=== PATIENT | female | born 1950 | race Caucasian/White ===

== ENCOUNTER 2019-04-04 13:30 | Outpatient (RCR) | payer BC, SELFPAY ==
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
--- NOTE | 2019-03-15 15:29 | HP.PTREVAL_ITS ---
LIZ HERNANDEZ, It has been my pleasure to treat BEAR HARRY over the last 9 visits for Right TKR. Please see the progress note below for an update on the physical therapy plan of care! Subjective: Patient reports that the knee is sore- the weather really bothers it- only taking Aleve or Tylenol. Went to MD who is very happy with her move ment. Wants her to do another 4 weeks of PT and wants to get back in the pool. Objective/Function: Posture: FH, RS- can correct with verbal cues. Gait: slightly antalgic- no AD and decreased stance on the right. Edema: moderate in right knee. Stairs: asc/desc recip with 2 HR. HR/TR: able with UE a. SLS: WS fully to the right but does not remove hands from wall. Palpation: not tender to touch. Observation: well healed incision ROM: 0-125 degrees. Strength: Ankle: 5/5, Knee: 4+/5, Hip: 4+/5 throughout Core: fair. Flex: HS-mod, Gastroc: mod Plan Plan: Continue aquatic PT 2x a week for 4 weeks Goals Goal 1:: Patient will be I with HEP and progression Goal Time Frame: 4-6 Weeks Goal Progress: Progressing Goal 2:: Patient will ambulate >300 feet with a normalized gait pattern and LRD Goal Time Frame: 4-6 Weeks Goal Progress: Progressing Goal 3:: Patient will asc/desc 8 stairs recip with 1 HR Goal Time Frame: 4-6 Weeks Goal Progress: Progressing Goal 4:: Patient will demo 0-115 degrees of ROM Goal Time Frame: 4-6 Weeks Goal Progress: Goal Met Anticipated Interventions Patient/Client Instruction: Educate patient on: Benefits of Fitness Program Therapeutic Exercise to Include: Strength training, Endurance training, Balance training, Agility training, Body mechanics, Postural training, Flexibilty training, Gait and locomotor training, Passive ROM, Active ROM, Dynamic Lumbar Stabilization For the Purpose of:: To improve muscle performance and motor function TENS: Yes Cryotherapy (ice pack, ice massage): Yes Thermo therapy (hot pack): Yes Ultrasound (thermal/non thermal): No Please do not hesitate to contact me at [phone] by phone or if you have questions or concerns regarding this new plan of care! Sincerely, Jesenia Flores, CABRERAT
--- NOTE | 2019-04-04 13:50 | HP.PTDCSUM ---
HP - PT D/C Summary It has been my pleasure to treat BEAR HARRY under orders from LIZ HERNANDEZ, for the diagnosis of Right TKR for a total of 14 visit(s). Discharge Date: Please see the following information for a summary of their discharge status. - Subjective Subjective: Patient reports that she still needs the swelling to go down- she is sleeping better and the pain is better. Worst: 4/10 rainy days do not help. Best: 0/10 most of the time she is painfree. Goes back to work tomorrow. Feels that she is 70%- wants the swelling to go down and walk futher and better. Still feels like she has a slight limp - Pain right knee Pain Intensity (Out of 10): 2 - Overall Improvement % Improvement: 70 - Objective Objective/Function: Posture: FH, RS- can correct with verbal cues. Gait: slightly antalgic- no AD and decreased stance on the right. Edema: moderate in right knee. Stairs: asc/desc recip with 1 HR. HR/TR: able with UE a. SLS: WS fully to the right but leaves one finger on the wall. Palpation: not tender to touch. Observation: well healed incision ROM: 0-125 degrees. Strength: Ankle: 5/5, Knee: 5/5, Hip: 5/5 throughout Core: fair plus. Flex: HS-mod, Gastroc: mod - Goals Goal 1:: Patient will be I with HEP and progression Goal Progress: Goal Met Goal 2:: Patient will ambulate >300 feet with a normalized gait pattern and LRD Goal Progress: Progressing Goal 3:: Patient will asc/desc 8 stairs recip with 1 HR Goal Progress: Goal Met Goal 4:: Patient will demo 0-115 degrees of ROM Goal Progress: Goal Met - Plan Plan: Discharge to I home exercise program - D/C Information If there are questions or concerns regarding this patient's physical therapy, please feel free to call me at [phone]. Thank you for the referral of this patient. Sincerely, CABRERA CabreraT
== END 2019-04-04 19:00 | disposition home or self-care (01) ==
LOC: PT 13:30
DX: Z96.651 Presence of right artificial knee joint (principal)
CPT/HCPCS: 97110; 97113; 97161; 97164

== ENCOUNTER 2019-07-19 13:30 | Outpatient (RCR) | payer BC, SELFPAY ==
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
--- NOTE | 2019-08-31 08:09 | HP.PT.NRP ---
HP - Discharge Summary (1) - Patient Information BEAR HARRY was seen in my office for initial evaluation on 07/16/19. The following Plan of Care was established for this patient: Initial Frequency: 2x /Week Initial Duration: 4 Weeks - Anticipated Interventions Patient/Client Instruction: Educate patient on: Condition For the Purpose of:: To decrease pain Therapeutic Exercise to Include: Strength training, Balance training, Body mechanics, Flexibilty training, Gait and locomotor training, In an aquatic setting, Passive ROM, Active ROM, Dynamic Lumbar Stabilization For the Purpose of:: To improve performance and independence with ADL's Functional Training to Include: Gait training For the Purpose of:: To improve performance and independence with ADL's Cryotherapy (ice pack, ice massage): Yes Thermo therapy (hot pack): Yes For the Purpose of:: To decrease pain This patient was last seen in our office . Pertinent comments regarding their Physical therapy will appear below: Patient has returned to work and I with HEP- d/c at this time. At this point I will be discontinuing this patient from physical therapy. I would be happy to see this patient again in the future if found appropriate by the physician. Thank you! CABRERA CabreraT
== END 2019-07-19 19:00 | disposition home or self-care (01) ==
LOC: PT 13:30
DX: S82.392D Other fracture of lower end of left tibia, subsequent encounter for closed fracture with routine healing (principal); S82.832D Other fracture of upper and lower end of left fibula, subsequent encounter for closed fracture with routine healing; S92.355D Nondisplaced fracture of fifth metatarsal bone, left foot, subsequent encounter for fracture with routine healing
CPT/HCPCS: 97113; 97161

== ENCOUNTER → 2020-10-02 07:14 | Outpatient (CLI) | payer MEDICARE, OTHER, SELFPAY ==
[2020-10-02 11:13] LABS: ALB/GLOB Ratio 0.9 RATIO (0.9-2.4); AST(SGOT) 18 U/L (15-37); Alanine Aminotransfer ALT/SGPT 35 U/L (13-56); Albumin, Serum 3.4 g/dL (3.2-5.0); Alkaline Phosphatase 114 U/L (45-117); Anion Gap 5 (5-15); BUN 11 mg/dL (7-18); BUN/Creat Ratio 14.4 RATIO (10-20); Calcium,Total 8.7 mg/dL (8.5-10.1); Chloride 108 mmol/L (98-107); Cholesterol 163 mg/dL (200); Creatinine, Serum 0.76 mg/dL (0.55-1.02); EST Glomerular Filtration Rate 80 mL/min (>60); Est Glom Filt Rate - Afr Amer 96 mL/min (>60); Globulin 3.7 g/dL (2.2-4.2); Glucose 89 mg/dL (74-106); High Density Lipoprotein 40 mg/dL; Potassium 3.7 mmol/L (3.5-5.1); Protein, Total 7.1 g/dL (6.4-8.2); Sodium Level 140 mmol/L (136-145); Triglycerides 150 mg/dL; Very Low Density Lipoprotein 30 mg/dL (5-40)
[2020-10-06 18:22] LABS: Vitamin D 1,25-Dihydroxy 48.1 pg/mL (19.9-79.3)
== END ==
DX: E78.2 Mixed hyperlipidemia (principal); I10 Essential (primary) hypertension; E55.9 Vitamin D deficiency, unspecified
CPT/HCPCS: 36415; 80053; 80061; 82652